=== PATIENT | male | born 1955 | race Caucasian/White ===

== ENCOUNTER → 2019-05-21 | Outpatient (CLI) | payer BC ==
[~2019-05-21] MED LIST: FUROSEMIDE 40 MG INJ IV SCH
== END | disposition home or self-care (01) ==
LOC: NUC 08:10
PROVIDERS: ATTEND Urology
DX: D49.512 Neoplasm of unspecified behavior of left kidney (principal)
CPT/HCPCS: 78708; A9562; J1940